=== PATIENT | male | born 1990 | race Caucasian/White ===

== ENCOUNTER 2023-11-06 18:10 | Emergency (ER) | payer BC, SELFPAY ==
[2023-11-06 18:20] VITALS: BP 159/98
[2023-11-06 19:00] LABS: Urine Albumin Trace (Neg - Trace); Urine Bilirubin Negative (Negative); Urine Character Clear (Clear); Urine Color Yellow; Urine Glucose Negative (Negative); Urine Ketone Negative (Negative); Urine Leukocyte Negative (Negative); Urine Nitrite Negative (Negative); Urine Occult Blood Negative (Negative); Urine Specific Gravity 1.025 (<1.030); Urine Urobilinogen Negative (Neg - 1+)
--- NOTE | 2023-11-06 20:31 | ED.GENMED ---
History of Present Illness
General
Chief Complaint: Male Genito-Urinary Symptoms
Source: patient
Time Seen by Provider: 11/06/23 20:05
Travel History
Have you had any contact with someone who has COVID-19?: No
Do you have any symptoms of coronavirus? Fever > 100 degrees, chills, cough, shortness of breath, sore throat, loss of taste or smell, muscle aches, or headache?: No
History of Present Illness
History of Present Illness:
33-year-old male presents to the emergency room complaining of bilateral testicular pain. Patient states he has testicular pain from time to time. He associates his testicular pain with lack of sex. Typically the pain goes away after he has sex.
However the pain has been experiencing over the past 3 to 4 days seems more intense than what he normally experiences. He denies any dysuria or frequency. Denies any penile discharge. He denies any trauma.
Phy Exam
Physical Exam
Physical Exam:
General: Awake, Alert, Oriented X3. No acute distress.
Vitals: unremarkable
Head: Atraumatic
Eyes: Pupils equal, EOMI
Throat: Airway intact, no exudates
Neck: Trachea midline
Lungs: Clear and equal b/l
Heart: Regular rate, no murmurs
Abd: Soft, Nontender, No pulsatile mass
Genitalia: Normal external genitalia, testicles are mildly tender bilaterally but no abnormal findings to palpation. Clear start reflex intact.
Neuro: Nonfocal
Skin: Warm, dry, no rash
Extremities: pulses equal b/l, no edema
Course
Orders/Labs/Results
Orders:
Orders
11/06/23 18:27
Scrotum US [US Scrotum] Urgent
Comment:
Reason For Exam: intermittent bilateral testicular pain
11/06/23 18:33
Urinalysis Reflex To Culture Urgent
Date Specimen was Collected: 11/06/23
Time Specimen was Collected: 18:29
Vital Signs
Initial and Last Documented VS:
Initial Vital Signs
Temp Pulse Resp BP Pulse Ox
97.7 F 87 20 159/98 98
11/06/23 18:20 11/06/23 18:20 11/06/23 18:20 11/06/23 18:20 11/06/23 18:20
Last Documented Vital Signs
Temp Pulse Resp BP Pulse Ox
97.7 F 87 20 159/98 98
11/06/23 18:20 11/06/23 18:20 11/06/23 18:20 11/06/23 18:20 11/06/23 18:20
MDM/Problems Addressed
Differential Diagnosis Includes:
Epididymoorchitis, hydrocele, varicocele, testicular mass
MDM/Problems Addressed:
Urine is normal. Ultrasound is normal. Unclear why the patient is having testicular pain but there is no appear any unstable or emergent process. Recommend help with urology. Underwear and NSAIDs until then.
*Radiology
Radiology exam reviewed: radiology read reviewed
*Pulse Oximetry
Patient hypoxic: no
*Critical Care Note
Total Time (30-74mins, 75-104mins- exclusive of procedures): Not Applicable
ED Attending Note
-
Portions of this chart may have been created with voice recognition software.� Occasional wrong word or��sound alike� substitutions may have occurred due to the inherent limitations of voice recognition software.
Discharge Plan
Departure
Patient Disposition: Home (Routine Discharge)
Date of Disposition: 11/06/23
Time of Disposition: 20:34
Patient with high blood pressure during this ER visit?: Yes
Condition: Good
Discharge Problem:
Pain in both testicles
Referrals:
Reji Omalley MD [Active] -
Activity Restrictions/Additional Instructions:
Your work up for testicular pain is normal including ultrasound and urine. Please call and make an appointment with Dr. Omalley or one of his partners for further evaluation.
Interventions
Interventions:
*Risk Screen - Suicide Last Done: 11/06/23 18:28
*General Assessment Last Done: 11/06/23 18:28
*Neglect/Abuse Screening Last Done: 11/06/23 18:28
ED- Fall Risk Assessment Last Done: 11/06/23 20:38
*ED COVID-19 Vaccine History Last Done: 11/06/23 18:28
*Nursing Disposition Last Done: 11/06/23 20:55
ED-Male Genitourinary Assessment Last Done: 11/06/23 20:38
Discharge Date and Time
Discharge Date/Time: 11/06/23 20:56
== END 2023-11-06 20:56 | disposition home or self-care (01) ==
LOC: EMR 18:10
PROVIDERS: Emergency Medicine; EMERGENCY PHYSICIAN Emergency Medicine; FAMILY PHYSICIAN Family Medicine
DX: N50.812 Left testicular pain (principal); N50.811 Right testicular pain; R03.0 Elevated blood-pressure reading, without diagnosis of hypertension
CPT/HCPCS: 99284; 76870; 81003; 93976